=== PATIENT | female | born 2000 | race Two or more races ===

== ENCOUNTER 2019-05-08 01:22 | Emergency (ER) | payer MEDICAID ==
[~2019-05-08] VITALS: Ht 157.5 cm; Wt 57.6 kg
[2019-05-08 01:35] VITALS: Ht 157.5 cm; Wt 57.6 kg
[2019-05-08 02:31] LABS: AMPHETAMINE QUAL UR NONE DETECTED (See below)
[2019-05-08 03:31] LABS: UA SPECIFIC GRAVITY <=1.005 (1.005-1.035); microscopic required? YES; urine erythrocyte NEGATIVE (NEGATIVE)
[2019-05-08 03:38] LABS: BASOPHIL % 0.1 % (0-2); PLATELET COUNT 298 x10^3mcL (130-400); RED CELL DISTRIBUTION WIDTH 14.1 % (11.5-14.5)
[2019-05-08 03:48] LABS: CARBON DIOXIDE 23.5 mmol/L (21-32); CHLORIDE SERUM 102 mmol/L (98-107); CREATININE SERUM 0.6 mg/dL (0.6-1.0); GFR1 > 60 mL/min; GLUCOSE SERUM 112 mg/dL (74-106); POTASSIUM SERUM 3.4 mmol/L (3.5-5.1); SODIUM SERUM 138 mmol/L (136-145)
[2019-05-08 03:52] LABS: ALBUMIN 4.2 g/dL (3.4-5.0); ALKALINE PHOSPHATASE 77 U/L (46-116); ALT/SGPT 23 U/L (14-59); AST/SGOT 12 U/L (15-37); BILIRUBIN TOTAL 0.91 mg/dL (0.20-1.00); TOTAL PROTEIN, SERUM 8.5 g/dL (6.4-8.2)
[2019-05-08 10:06] VITALS: BP 116/71
== END 2019-05-08 10:06 | disposition home or self-care (01) ==
LOC: ED 01:22
PROVIDERS: Emergency Medicine
DX: R44.3 Hallucinations, unspecified (principal); N39.0 Urinary tract infection, site not specified
CPT/HCPCS: 36415; G0480